=== PATIENT | male | born 1990 | race Caucasian/White ===

== ENCOUNTER 2017-09-09 13:13 | Emergency (ER) | payer SELFPAY ==
[2017-09-09] MEDS ORDERED: TRAM-420 PO (13:39)
[2017-09-09] MEDS ORDERED: AMOX500T10 PO (13:39)
--- NOTE | 2017-09-09 13:42 | ER Report ---
History and Physical Time Seen By MD: 13:20 Hx. of Stated Complaint: PATIENT REPORTS THAT HE THINKS HE HAS AN ABCESS ON THE RIGHT SIDE OF HIS FACE HPI/ROS Chief Complaint: "cheek swelling" HPI: 27-year-old male presents to the emergency department with right sided jaw pain. The pain is constant and progressively getting worse for the last four days. The pain is rated as an 8/10. His reports he has always had poor dentition and would like to know if the [facility] could potentially remove his teeth for dentures. The patient reports a history of dental abscesses but those infections have historically gone away on their own. He reports a history of chewing tobacco use. Associated difficulty swallowing due to pain. No treatments tired. ROS: Constitutional. Denies recent illness, malaise, chills, fever. HEENT. Denies headache. No sore throat. Reports dental pain, reports jaw pain., reports difficulty swallowing. Cardiovascular. Denies chest pain. Respiratory. Denies shortness of breath. Gastrointestinal System. Denies nausea, vomiting, diarrhea or constipation. Allergies: Coded Allergies: No Known Drug Allergies (Unverified , 09/09/17) Home Meds Active Scripts Tramadol Hcl (TRAMADOL HCL) 50 Mg Tablet, 50 MG PO Q4-6H, #8 TAB Prov:JOHN HO [facility] 09/09/17 Amoxicillin 500 Mg Tab (AMOXICILLIN 500 MG TAB) 500 Mg Tablet, 1 TAB PO Q8H for 10 Days, #30 TAB Prov:JOHN HO [facility] 09/09/17 Past Medical/Surgical History "bad teeth" Social History of Chewing Tobacco Use Constitutional Vital Sign - Last 24 Hours 09/09/17 09/09/17 13:17 13:48 Temp 98.0 Pulse 107 99 Resp 20 20 B/P (MAP) 133/86 129/83 (98) Pulse Ox 92 95 O2 Delivery Room Air Room Air Physical Exam Physical Examination Constitutional: Generally well nourished, well-developed male, interactive, in no acute distress. Extremities warm to touch. Skin: [place] and well perfused BL. No evidence of generalized rash. Generally, warm and dry to touch. Head: Normocephalic and atraumatic. Eyes: Non-injected. No exudates. PERRLA. Corneas grossly intact. ENMT: Ears- symmetrical auricles with smooth skin; auricles aligned with the outer canthus of eye. Nose - symmetric, straight, and uniform in color. No nasal flaring. Mouth - mucosa pink and moist. Right upper and lower jaw erythema and swelling consistent with dental abscess. Throat no hoarseness, uvula midline. Neck: Neck supple, erect, trachea midline, no masses. Lymph nodes- right sided cervical chain, pre-auricular, and submental lymph nodes - tender and palpable. Occipital and left sided lymph nodes non-tender, non-palpable. Right parotid glands tender, left non-tender. Cardiovascular: PMI - left midclavicular at the 5th ICS. Aortic, pulmonic, tricuspid, and mitral areas - clear S1/S2; no murmur, no S3, or S4. Respiratory: Respiratory Excursion BL equal and symmetrical; no presence of lag ; quiet, rhythmic and effortless. No retractions. BL clear and equal. Musculoskeletal: Moves all extremities. Neurologic: Alert. Language clear. Cranial nerves grossly intact Differential Diagnoses dental abscess, tonsillitis, URI Medical Decision Making ED Course/Re-evaluation ED Course 27-year-old male presents to the emergency department with right sided jaw pain. He reports a history of poor dental health with history of dental abscess and tobacco use. History and physical examination obtained. Differential diagnoses considered. The physical examination is consistent with dental abscess. The patient has refused a CT of the face and head today. He states, he would like to try antibiotic treatment and if symptoms do not improve by Tuesday he will return to have the CT-scan. The patient has been sent home with pain medications Toradol and antibiotics - amoxicillin. He has been encouraged to take ibuprofen for pain and Toradol only for severe pain. The patient has been encouraged to return to the emergency department if his condition worsens. The patient states understanding and agreement. Decision to Disposition Date: Sep 09, 2017 Decision to Disposition Time: 14:01 Depart Departure Latest Vital Signs Vital Signs Date Time Temp Pulse Resp B/P (MAP) Pulse Ox O2 Delivery O2 Flow Rate FiO2 09/09/17 13:48 99 20 129/83 (98) 95 Room Air 09/09/17 13:17 98.0 Impression: Primary Impression: Dental abscess Condition: Condition Unchanged Disposition: HOME OR SELF-CARE New Scripts Tramadol Hcl (TRAMADOL HCL) 50 Mg Tablet 50 MG PO Q4-6H, #8 TAB Prov: JOHN HO 09/09/17 Amoxicillin 500 Mg Tab (AMOXICILLIN 500 MG TAB) 500 Mg Tablet 1 TAB PO Q8H for 10 Days, #30 TAB Prov: JOHN HO 09/09/17 Patient Instructions: Dental Abscess (ED) Additional Instructions: Take antibiotics three times a day for 10 days. Take ibuprofen for pain as needed. Take tramadol for severe pain. Return to the emergency department to have a CT scan if you are not seeing improvement by Tuesday. Follow up with your primary care provider or dentist as soon as possible. [facility] [employer] [facility] - [phone] JOHN HO Sep 09, 2017 13:42
[2017-09-09 13:48] VITALS: BP 129/83
[2017-09-10] MEDS ORDERED: PRED20TA6 PO (19:54)
== END 2017-09-09 13:45 | disposition home or self-care (01) ==
LOC: ER 13:22
DX: K04.7 Periapical abscess without sinus (principal)
CPT/HCPCS: 99281

== ENCOUNTER 2017-09-10 17:11 | Emergency (ER) | payer SELFPAY ==
[~2017-09-10 17:11] MED LIST: AMOX500T10 PO; TRAM-420 PO
[2017-09-10] MEDS ORDERED: NS(*) 0.9% 1000 ML BAG 1,000 ML IV ONE (17:15)
[2017-09-10] MEDS ORDERED: CLINDAMYCIN(*) 300 MG/2 ML VI 300 MG in NS(*) 0.9% 100 ML BAG 100 ML IVPB ONE (17:15)
--- NOTE | 2017-09-10 17:22 | ER Report ---
History and Physical Time Seen By MD: 17:17 Hx. of Stated Complaint: PATIENT REPORTS THAT HE HASN'T BEEN ABLE TO EAT OR DRINK ANYTHING SINCE HIS VISIT YESTERDAY HPI/ROS CHIEF COMPLAINT: Jaw pain, difficulty swallowing HISTORY OF PRESENT ILLNESS: 27-year-old male patient presents to emergency room with complaint of jaw pain difficulties swallowing. Patient states that he has been having pain for the past several days. He states that he was going to be seen by a dentist, he was going to call to make an appointment next week. Patient states he was seen yesterday and has not been able to eat or drink anything since yesterday. He states he is having difficult time swallowing because the pain. He states that he is worse today than he was yesterday. Allergies: Coded Allergies: No Known Drug Allergies (Unverified , 09/09/17) Home Meds Active Scripts Prednisone (PREDNISONE) 20 Mg Tablet, 40 MG PO DAILY, #8 TAB Prov:JOHN HO [facility] 09/10/17 Tramadol Hcl (TRAMADOL HCL) 50 Mg Tablet, 50 MG PO Q4-6H, #8 TAB Prov:JOHN HO [facility] 09/09/17 Amoxicillin 500 Mg Tab (AMOXICILLIN 500 MG TAB) 500 Mg Tablet, 1 TAB PO Q8H for 10 Days, #30 TAB Prov:JOHN HO [facility] 09/09/17 Past Medical/Surgical History Patient has a past medical history of bad teeth. Patient denies any surgical history. Reviewed Nurses Notes: Yes Constitutional Vital Sign - Last 24 Hours 09/10/17 09/10/17 09/10/17 09/10/17 17:13 17:15 18:36 18:41 Temp 98.5 Pulse 78 Resp 20 B/P (MAP) 145/94 (111) 145/94 146/86 (106) Pulse Ox 94 92 O2 Delivery Room Air 09/10/17 09/10/17 09/10/17 09/10/17 18:56 19:01 19:16 19:31 Pulse 90 82 82 81 Pulse Ox 94 95 93 95 09/10/17 09/10/17 19:46 20:04 Pulse 82 B/P (MAP) 147/84 (105) Pulse Ox 93 Intake and Output 09/10/17 09/10/17 09/11/17 15:00 23:00 07:00 Intake Total 1102 ml Balance 1102 ml Physical Exam General appearance: Alert no distress. Respiratory: Chest is non tender, lungs are clear to auscultation. Cardiac: Regular rate and rhythm. ENT: Patient does have poor dentition, any swelling to the right cheek, is tender to touch. DIFFERENTIAL DIAGNOSIS: After history and physical exam differential diagnosis was considered for dental infection, abscess, parotitis Medical Decision Making Data Points Result Diagram: 09/10/17 1728 09/10/17 1728 Laboratory Hematology Test 09/10/17 17:28 Red Blood Count 5.41 M/uL (4.00-5.60) Mean Corpuscular Volume 94.8 fL (80.0-96.0) Mean Corpuscular Hemoglobin 33.9 pg (26.0-33.0) Mean Corpuscular Hemoglobin Concent 35.8 g/dL (32.0-36.0) Red Cell Distribution Width 12.9 % (11.5-14.5) Mean Platelet Volume 9.4 fL (7.2-11.1) Neutrophils (%) (Auto) 75.2 % (39.4-72.5) Lymphocytes (%) (Auto) 12.2 % (17.6-49.6) Monocytes (%) (Auto) 11.0 % (4.1-12.4) Eosinophils (%) (Auto) 1.0 % (0.4-6.7) Basophils (%) (Auto) 0.6 % (0.3-1.4) Nucleated RBC Relative Count (auto) 0.0 /100WBC Neutrophils # (Auto) 12.2 K/uL (2.0-7.4) Lymphocytes # (Auto) 2.0 K/uL (1.3-3.6) Monocytes # (Auto) 1.8 K/uL (0.3-1.0) Eosinophils # (Auto) 0.2 K/uL (0.0-0.5) Basophils # (Auto) 0.1 K/uL (0.0-0.1) Nucleated RBC Absolute Count (auto) 0.01 K/uL Sodium Level 138 mmol/L (137-145) Potassium Level 4.0 mmol/L (3.5-5.0) Chloride Level 101 mmol/L (98-107) Carbon Dioxide Level 25 mmol/L (22-30) Blood Urea Nitrogen 14 mg/dl (9-21) Creatinine 1.00 mg/dl (0.66-1.25) Glomerular Filtration Rate Calc > 60.0 Random Glucose 115 mg/dl (75-110) Calcium Level 9.4 mg/dl (8.4-10.2) Total Bilirubin 2.0 mg/dl (0.2-1.3) Aspartate Amino Transf (AST/SGOT) 20 U/L (0-35) Alanine Aminotransferase (ALT/SGPT) 20 U/L (0-56) Alkaline Phosphatase 107 U/L (0-126) C-Reactive Protein 14.6 mg/dl (<1.0) Total Protein 8.3 g/dl (6.3-8.2) Albumin 4.6 g/dl (3.5-5.0) Chemistry Test 09/10/17 17:28 White Blood Count 16.3 k/uL (4.5-11.0) Red Blood Count 5.41 M/uL (4.00-5.60) Hemoglobin 18.4 g/dL (14.0-18.0) Hematocrit 51.3 % (42.0-52.0) Mean Corpuscular Volume 94.8 fL (80.0-96.0) Mean Corpuscular Hemoglobin 33.9 pg (26.0-33.0) Mean Corpuscular Hemoglobin Concent 35.8 g/dL (32.0-36.0) Red Cell Distribution Width 12.9 % (11.5-14.5) Platelet Count 236 K/uL (150-450) Mean Platelet Volume 9.4 fL (7.2-11.1) Neutrophils (%) (Auto) 75.2 % (39.4-72.5) Lymphocytes (%) (Auto) 12.2 % (17.6-49.6) Monocytes (%) (Auto) 11.0 % (4.1-12.4) Eosinophils (%) (Auto) 1.0 % (0.4-6.7) Basophils (%) (Auto) 0.6 % (0.3-1.4) Nucleated RBC Relative Count (auto) 0.0 /100WBC Neutrophils # (Auto) 12.2 K/uL (2.0-7.4) Lymphocytes # (Auto) 2.0 K/uL (1.3-3.6) Monocytes # (Auto) 1.8 K/uL (0.3-1.0) Eosinophils # (Auto) 0.2 K/uL (0.0-0.5) Basophils # (Auto) 0.1 K/uL (0.0-0.1) Nucleated RBC Absolute Count (auto) 0.01 K/uL Glomerular Filtration Rate Calc > 60.0 Calcium Level 9.4 mg/dl (8.4-10.2) Total Bilirubin 2.0 mg/dl (0.2-1.3) Aspartate Amino Transf (AST/SGOT) 20 U/L (0-35) Alanine Aminotransferase (ALT/SGPT) 20 U/L (0-56) Alkaline Phosphatase 107 U/L (0-126) C-Reactive Protein 14.6 mg/dl (<1.0) Total Protein 8.3 g/dl (6.3-8.2) Albumin 4.6 g/dl (3.5-5.0) EKG/Imaging Imaging EXAMINATION: CT neck with IV contrast CT facial bones with IV contrast HISTORY: Swelling and pain. COMPARISON: Right-sided pain and swelling. TECHNIQUE: Spiral scan was obtained from the hard palate through the upper chest during injection of nonionic iodinated intravenous contrast. Sagittal and coronal reformatted images are also submitted. Axial images were obtained from the superior aspect of the orbits through the inferior aspect of mandible with IV contrast. Coronal and sagittal reformatted images were obtained from the axial source data. CONTRAST: 75 mL of IV Isovue-370 One of the following dose optimization techniques was utilized in the performance of this exam: Automated exposure control; adjustment of the mA and/ or kV according to the patient's size; or use of an iterative reconstruction technique. Specific details can be referenced in the facility's radiology CT exam operational policy. FINDINGS: CT NECK: Masses/lesions: There is a peripherally enhancing collection along the medial surface and undersurface of the right mandibular body and angle, measuring 3.2 x 2.6 x 2.4 cm. There is swelling in the surrounding soft tissues in the right submandibular space and in the overlying subcutaneous soft tissues. The right pterygoid musculature is mildly swollen. There is also stranding in the subcutaneous soft tissues extending inferiorly overlying the strap musculature in the anterior neck. Airway: The oral pharyngeal airway is mildly narrowed due to swelling in the right braille proofreader space and the above noted fluid collection. Vessels: Negative. Musculoskeletal / Body wall: Negative. Lymph node assessment: Mild enlargement of right level 1B and right level 2 and level 3 cervical lymph nodes. Visualized orbits / brain / paranasal sinuses: Nasal septal spur on the left. Upper chest: Negative. CT FACE: Soft Tissues: Peripherally enhancing fluid collection along the right mandibular body and angle noted above with surrounding soft tissue swelling. Mandible / TMJ: There is erosion of a large portion of the crown of the right mandibular third molar. There is a small periapical lucency about the root of the right mandibular third molar. There are also erosions in the crowns of the left mandibular first, second, and third molars. Maxillae / pterygoid plates: Bone loss about the roots of multiple maxillary teeth. Erosions/cavities in the crowns of multiple maxillary teeth. Zygoma / zygomatic arches: Negative. Orbits: Negative. Nasal bones / nasal septum: Nasal septal spur on the left. Frontal bones: Negative. Sinuses: Negative. Visualized brain: Negative. IMPRESSION: Abscess along the body and angle of the right mandible measuring 3.2 x 2.6 x 2.4 cm with surrounding soft tissue swelling. Several dental caries and with bone loss about the roots of multiple teeth. There is a periapical lucency about the root of the right third mandibular molar which is probably a periapical abscess and is adjacent to the above noted soft tissue abscess. Reactive lymphadenopathy in the right side of the neck. Report Dictated By: Roberto Cuevas MD at 09/10/2017 6:52 PM Report E-Signed By: Roberto Cuevas MD at 09/10/2017 7:08 PM ED Course/Re-evaluation ED Course Patient is admitted exam room, history and physical obtained. Differential diagnoses were considered. On examination lungs are clear, heart regular, abdomen soft nontender. Patient does have swelling to the right side of the cheek. Tender to touch. Patient states is having a difficult time swallowing. As a result of a difficult time swallowing a CT scan of the facial bones as well as soft tissues of neck were done. That was positive for a 3.4 x 2.6 x 2.4 abscess, but appears to be originating from the third molar on the right side. A CBC, CMP, CRP was done. Patient had an elevated CRP of 14.6, CBC was 16,000 with a left shift, CMP was unremarkable. IV was started, patient received a liter of normal saline. Also gave patient a dose of clindamycin here in the emergency room 300 mg. I discussed findings and CT scan with patient. We will go ahead and add prednisone to his medications, I would like him to continue with the amoxicillin. Patient's follow-up with a dentist soon as possible to get abscess drained, if there's no improvement. If there is improvement I would like him follow-up with dentistry to have right third molar removed. I discussed with the patient who verbalized understanding and agreement with plan. Decision to Disposition Date: Sep 10, 2017 Decision to Disposition Time: 19:53 Depart Departure Latest Vital Signs Vital Signs Date Time Temp Pulse Resp B/P (MAP) Pulse Ox O2 Delivery O2 Flow Rate FiO2 09/10/17 20:04 147/84 (105) 09/10/17 19:46 82 93 09/10/17 17:15 98.5 20 Room Air Impression: Primary Impression: Dental abscess Condition: Improved Disposition: HOME OR SELF-CARE New Scripts Prednisone (PREDNISONE) 20 Mg Tablet 40 MG PO DAILY, #8 TAB Prov: JOHN HO 09/10/17 Patient Instructions: Dental Abscess (ED) Additional Instructions: You may take Ibuoprofen in addition to the pain medication as needed for pain. Rinse mouth with warm salt water after every meal. Eat soft foods. Follow up with your dentist as soon as possible, call to make an appointment. Return to the ER if condition worsens. Take Steroids as prescribed. JOHN HO Sep 10, 2017 17:22
[2017-09-10] MEDS ORDERED: CLINDAMYCIN 300 MG/2 ML VIAL ONE (17:31)
[2017-09-10] MEDS ORDERED: IOPAMIDOL 76% 75 ML INFUS BTL 75 ML ONE (17:31)
[2017-09-10 17:37] LABS: PLATELET COUNT, AUTOMATED 236 K/uL (150-450)
--- NOTE | 2017-09-10 19:51 | RADIOLOGY IMAGING REPORT ---
[place]AC[place] [facility] [place]IENT NAME: Tor Christensen : 1990 MR: [id number] V: [id number] EXAM DATE: ORDERING PHYSICIAN: JOHN HO TECHNOLOGIST: Location: [facility] [place] Patient: Tor Christensen : 1990 Visit/Account:[id number] Date of Sevice: 09/10/2017 EXAMINATION: CT neck with IV contrast CT facial bones with IV contrast HISTORY: Swelling and pain. COMPARISON: Right-sided pain and swelling. TECHNIQUE: Spiral scan was obtained from the hard palate through the upper chest during injection o f nonionic iodinated intravenous contrast. Sagittal and coronal reformatted images are also submitte d. Axial images were obtained from the superior aspect of the orbits through the inferior aspect of romeo ible with IV contrast. Coronal and sagittal reformatted images were obtained from the axial source da ta. CONTRAST: 75 mL of IV Isovue-370 One of the following dose optimization techniques was utilized in the performance of this exam: Autom ated exposure control; adjustment of the mA and/or kV according to the patient's size; or use of an i terative reconstruction technique. Specific details can be referenced in the facility's radiology C T exam operational policy. FINDINGS: CT NECK: Masses/lesions: There is a peripherally enhancing collection along the medial surface and undersurfa ce of the right mandibular body and angle, measuring 3.2 x 2.6 x 2.4 cm. There is swelling in the sotero rounding soft tissues in the right submandibular space and in the overlying subcutaneous soft tissues . The right pterygoid musculature is mildly swollen. There is also stranding in the subcutaneous soft tissues extending inferiorly overlying the strap musculature in the anterior neck. Airway: The oral pharyngeal airway is mildly narrowed due to swelling in the right engineer rf deployment space and the above noted fluid collection. Vessels: Negative. Musculoskeletal / Body wall: Negative. Lymph node assessment: Mild enlargement of right level 1B and right level 2 and level 3 cervical lymp h nodes. Visualized orbits / brain / paranasal sinuses: Nasal septal spur on the left. Upper chest: Negative. CT FACE: Soft Tissues: Peripherally enhancing fluid collection along the right mandibular body and angle noted above with surrounding soft tissue swelling. Mandible / TMJ: There is erosion of a large portion of the crown of the right mandibular third molar. There is a small periapical lucency about the root of the right mandibular third molar. There are al so erosions in the crowns of the left mandibular first, second, and third molars. Maxillae / pterygoid plates: Bone loss about the roots of multiple maxillary teeth. Erosions/cavities in the crowns of multiple maxillary teeth. Zygoma / zygomatic arches: Negative. Orbits: Negative. Nasal bones / nasal septum: Nasal septal spur on the left. Frontal bones: Negative. Sinuses: Negative. Visualized brain: Negative. IMPRESSION: Abscess along the body and angle of the right mandible measuring 3.2 x 2.6 x 2.4 cm with surrounding soft tissue swelling. Several dental caries and with bone loss about the roots of multiple teeth. There is a periapical ld ency about the root of the right third mandibular molar which is probably a periapical abscess and is adjacent to the above noted soft tissue abscess. Reactive lymphadenopathy in the right side of the neck. Report Dictated By: Roberto Cuevas MD at 09/10/2017 6:52 PM Report E-Signed By: Roberto Cuevas MD at 09/10/2017 7:08 PM WSN:[id number]
--- NOTE | 2017-09-10 19:51 | RADIOLOGY IMAGING REPORT ---
FACILITY: [facility] - [place] PATIENT NAME: Tor Christensen : 1990 MR: [id number] V: [id number] EXAM DATE: ORDERING PHYSICIAN: JOHN HO TECHNOLOGIST: Location: [facility] Patient: Tor Christensen : 1990 Visit/Account:[id number] Date of Sevice: 09/10/2017 EXAMINATION: CT neck with IV contrast CT facial bones with IV contrast HISTORY: Swelling and pain. COMPARISON: Right-sided pain and swelling. TECHNIQUE: Spiral scan was obtained from the hard palate through the upper chest during injection o f nonionic iodinated intravenous contrast. Sagittal and coronal reformatted images are also submitte d. Axial images were obtained from the superior aspect of the orbits through the inferior aspect of romeo ible with IV contrast. Coronal and sagittal reformatted images were obtained from the axial source da ta. CONTRAST: 75 mL of IV Isovue-370 One of the following dose optimization techniques was utilized in the performance of this exam: Autom ated exposure control; adjustment of the mA and/or kV according to the patient's size; or use of an i terative reconstruction technique. Specific details can be referenced in the facility's radiology C T exam operational policy. FINDINGS: CT NECK: Masses/lesions: There is a peripherally enhancing collection along the medial surface and undersurfa ce of the right mandibular body and angle, measuring 3.2 x 2.6 x 2.4 cm. There is swelling in the sotero rounding soft tissues in the right submandibular space and in the overlying subcutaneous soft tissues . The right pterygoid musculature is mildly swollen. There is also stranding in the subcutaneous soft tissues extending inferiorly overlying the strap musculature in the anterior neck. Airway: The oral pharyngeal airway is mildly narrowed due to swelling in the right tennis racket repairer space and the above noted fluid collection. Vessels: Negative. Musculoskeletal / Body wall: Negative. Lymph node assessment: Mild enlargement of right level 1B and right level 2 and level 3 cervical lymp h nodes. Visualized orbits / brain / paranasal sinuses: Nasal septal spur on the left. Upper chest: Negative. CT FACE: Soft Tissues: Peripherally enhancing fluid collection along the right mandibular body and angle noted above with surrounding soft tissue swelling. Mandible / TMJ: There is erosion of a large portion of the crown of the right mandibular third molar. There is a small periapical lucency about the root of the right mandibular third molar. There are al so erosions in the crowns of the left mandibular first, second, and third molars. Maxillae / pterygoid plates: Bone loss about the roots of multiple maxillary teeth. Erosions/cavities in the crowns of multiple maxillary teeth. Zygoma / zygomatic arches: Negative. Orbits: Negative. Nasal bones / nasal septum: Nasal septal spur on the left. Frontal bones: Negative. Sinuses: Negative. Visualized brain: Negative. IMPRESSION: Abscess along the body and angle of the right mandible measuring 3.2 x 2.6 x 2.4 cm with surrounding soft tissue swelling. Several dental caries and with bone loss about the roots of multiple teeth. There is a periapical ld ency about the root of the right third mandibular molar which is probably a periapical abscess and is adjacent to the above noted soft tissue abscess. Reactive lymphadenopathy in the right side of the neck. Report Dictated By: Roberto Cuevas MD at 09/10/2017 6:52 PM Report E-Signed By: Roberto Cuevas MD at 09/10/2017 7:08 PM WSN:[id number]
[2017-09-10] MEDS ORDERED: PRED20TA6 PO (19:54)
[2017-09-10] MEDS ORDERED: predniSONE 20 MG TAB PO ONE (19:55)
[2017-09-10 20:04] VITALS: BP 147/84
== END 2017-09-10 20:05 | disposition home or self-care (01) ==
LOC: ER 17:35
DX: K04.7 Periapical abscess without sinus (principal)
CPT/HCPCS: 70487; 70491; 85025; 86140; 96365; 99284; J3490; J7030; J7050; J7512; Q9967; 82040; 82247; 82310; 82374; 82435; 82565; 82947; 84075; 84132; 84155; 84295; 84450; 84460; 84520